=== PATIENT | female | born 1965 | race Two or more races ===

== ENCOUNTER 2018-12-24 18:04 | Emergency (ER) | payer OTHER ==
[~2018-12-24] VITALS: Ht 162.6 cm; Wt 77.3 kg
[2018-12-24 19:00] LABS: GLUCOSE,POINT OF CARE 290 MG/DL (70-110)
[2018-12-24] MEDS ORDERED: PRAZ5 PO (19:00)
[2018-12-24] MEDS ORDERED: PANT40TA25 PO (19:00)
[2018-12-24] MEDS ORDERED: INSNOV SQ (19:00)
[2018-12-24] MEDS ORDERED: METO-558 PO (19:00)
[2018-12-24] MEDS ORDERED: METF-960 PO (19:00)
[2018-12-24] MEDS ORDERED: EMPA25TA PO (19:00)
[2018-12-24] MEDS ORDERED: GABA-531 PO (19:00)
[2018-12-24] MEDS ORDERED: LISI-660 PO (19:00)
[2018-12-24] MEDS ORDERED: CETI10TA59 PO (19:00)
[2018-12-24] MEDS ORDERED: SIMV-260 PO (19:00)
[2018-12-24] MEDS ORDERED: BACL10TA PO (19:00)
[2018-12-24] MEDS ORDERED: INSU100V37 IM (19:00)
[2018-12-24] MEDS ORDERED: ASPI-1182 PO (19:00)
[2018-12-24] MEDS ORDERED: ACETAMINOPHEN 500 MG TABLET PO ONE (21:15)
[2018-12-24] MEDS ORDERED: SODIUM CHLORIDE 0.9% 1,000 ML IV ONE (21:15)
[2018-12-24 22:01] LABS: ANION GAP 8 mmol/L (8-16); CALCIUM, TOTAL 9.6 mg/dL (8.8-10.5); CARBON DIOXIDE 29 mmol/L (22-29); CHLORIDE 99 mmol/L (98-107); CREATININE 0.91 mg/dL (0.60-1.30); GLOMERULAR FILTR. RATE CALC > 60 mL/min (>60); GLUCOSE,RANDOM 324 mg/dL (70-110); POTASSIUM 4.5 mmol/L (3.5-5.1); SODIUM SERUM 136 mmol/L (136-145); UREA NITROGEN, BLOOD 18 mg/dL (7-18)
[2018-12-24 22:05] LABS: BASOPHILS % (AUTO) 0.3 % (0.0-2.0); EOSINOPHILS % (AUTO) 0.1 % (1.0-6.0); HEMATOCRIT 36.2 % (36-46); HEMOGLOBIN 11.7 g/dL (12.0-16.0); LYMPHOCYTES % (AUTO) 21.8 % (22.0-44.0); MEAN CORPUSCULAR HEMOGLOBIN 24.2 pg (26.0-34.0); MEAN CORPUSCULAR HGB CONC 32.3 G/dL (31.0-37.0); MEAN CORPUSCULAR VOLUME 75 fL (80-100); MONOCYTES # (AUTO) 0.5 K/uL (0.1-1.0); MONOCYTES % (AUTO) 9.6 % (2.0-9.0); NEUTROPHILS # (AUTO) 3.2 K/uL (1.8-7.7); NEUTROPHILS % (AUTO) 68.2 % (40.0-70.0); PLATELET COUNT (AUTO) 227 K/uL (150-450); RED BLOOD CELL COUNT(AUTO) 4.83 MIL/uL (4.00-5.20); RED CELL DISTRIBUTION WIDTH 15.9 % (11.5-14.5)
[2018-12-24] MEDS ORDERED: IOVERSOL 350 MG/ML 100 ML VIAL ONE (22:49)
[2018-12-24] MEDS ORDERED: SODIUM CHLORIDE 0.9% 100 ML ONE (22:49)
[2018-12-25 01:47] VITALS: BP 129/77
== END 2018-12-25 02:00 | disposition home or self-care (01) ==
LOC: EMS 18:06
DX: S93.401A Sprain of unspecified ligament of right ankle, initial encounter (principal); J18.9 Pneumonia, unspecified organism; R55 Syncope and collapse; I10 Essential (primary) hypertension; E11.9 Type 2 diabetes mellitus without complications; K21.9 Gastro-esophageal reflux disease without esophagitis; E78.00 Pure hypercholesterolemia, unspecified; Z79.82 Long term (current) use of aspirin; Z79.84 Long term (current) use of oral hypoglycemic drugs; Z79.899 Other long term (current) drug therapy; Z79.4 Long term (current) use of insulin; X58.XXXA Exposure to other specified factors, initial encounter; Y93.01 Activity, walking, marching and hiking; Y92.89 Other specified places as the place of occurrence of the external cause; Y99.8 Other external cause status
CPT/HCPCS: 36415; 70450; 71275; 73610; 73630; 80048; 82962; 85025; 85379; 93005; 96360; 99285; J7030; J7050; Q9967

== ENCOUNTER 2023-09-17 16:48 | Emergency (ER) | payer OTHER ==
[~2023-09-17] VITALS: Ht 152.4 cm; Wt 63.6 kg
[~2023-09-17 16:48] MED LIST: ASPI-1444 PO; BACL10TA PO; CETI-450 PO; EMPA25TA3 PO; GABA-1181 PO; INSNOV SQ; INSU100V37 IM; LISI-892 PO; METF-1211 PO; METO-558 PO; PANT-31 PO; PRAZ5 PO; SIMV-260 PO
[2023-09-17 17:31] LABS: BASOPHILS % (AUTO) 0.6 % (0.0-2.0); EOSINOPHILS % (AUTO) 0.6 % (1.0-6.0); HEMATOCRIT 39.9 % (36-46); HEMOGLOBIN 12.8 g/dL (12.0-16.0); LYMPHOCYTES # (AUTO) 1.2 K/uL (1.0-4.8); LYMPHOCYTES % (AUTO) 27.5 % (22.0-44.0); MEAN CORPUSCULAR HEMOGLOBIN 26.7 pg (26.0-34.0); MEAN CORPUSCULAR HGB CONC 32.1 G/dL (31.0-37.0); MEAN CORPUSCULAR VOLUME 83 fL (80-100); MONOCYTES # (AUTO) 0.2 K/uL (0.1-1.0); MONOCYTES % (AUTO) 5.1 % (2.0-9.0); NEUTROPHILS # (AUTO) 2.9 K/uL (1.8-7.7); NEUTROPHILS % (AUTO) 66.2 % (40.0-70.0); PLATELET COUNT (AUTO) 149 K/uL (150-450); RED CELL DISTRIBUTION WIDTH 13.9 % (11.5-14.5); WHITE BLOOD COUNT (AUTO) 4.3 K/uL (4.5-11.0)
[2023-09-17 17:54] LABS: ALBUMIN 4.3 g/dL (3.4-5.0); BILIRUBIN,TOTAL 0.5 mg/dL (0.1-1.0); CALCIUM, TOTAL 10.1 mg/dL (8.8-10.5); CREATININE 1.01 mg/dL (0.60-1.30); POTASSIUM 5.2 mmol/L (3.5-5.1)
[2023-09-17] MEDS ORDERED: INSULIN REGULAR, HUMAN 100 UNITS/ML IVP ONE (18:15)
[2023-09-17] MEDS ORDERED: SODIUM CHLORIDE 0.9% 1,000 ML IV ONE (18:15)
[2023-09-17] MEDS ORDERED: ACETAMINOPHEN 500 MG TABLET PO ONE (18:30)
[2023-09-17] MEDS ORDERED: FAMOTIDINE 20 MG/2 ML VIAL IVP ONE (18:30)
[2023-09-17] MEDS ORDERED: ONDANSETRON HCL 4 MG/2 ML VIAL IVP ONE (18:30)
[2023-09-17] MEDS ORDERED: MAG HYDROX/ALUMINUM HYD/SIMETH 30 ML SUSPENSION UDCUP PO ONE (18:30)
[2023-09-17 19:30] VITALS: TEMP 98.9
[2023-09-17 20:46] LABS: GLUCOMETER DEV NAME(LOC) ER.6; GLUCOSE,POINT OF CARE 376 MG/DL (70-110)
[2023-09-17] MEDS ORDERED: SODIUM CHLORIDE 0.9% 100 ML ONE (20:56)
[2023-09-17] MEDS ORDERED: IOHEXOL 350 MG/ML 100 ML VIAL ONE (20:56)
[2023-09-17 22:50] LABS: APPEARANCE,URINE CLEAR (CLEAR); BILIRUBIN,URINE NEGATIVE (NEGATIVE); COLOR,URINE LIGHT YELLOW (YELLOW); GLUCOSE, URINE (UA) >=1000 mg/dL (NEGATIVE); KETONES,URINE 40-60 mg/dL (NEGATIVE); LEUKOCYTE ESTERASE ,URINE NEGATIVE (NEGATIVE); NITRATE,URINE NEGATIVE (NEGATIVE); OCCULT BLOOD,URINE NEGATIVE (NEGATIVE); PH,URINE 5.5 (5.0-8.0); PROTEIN,URINE NEGATIVE (NEGATIVE); SPECIFIC GRAVITIY, URINE 1.038 (1.003-1.030); UROBILINOGEN,URINE <=1.0 mg/dL (<=1.0)
[2023-09-17 22:55] LABS: BACTERIA,URINE None Seen /HPF (None Seen); RBC,URINE None Seen /HPF (0-2); SQUAMOUS EPITHELIAL CELL,UR Few /LPF (None Seen); WBC,URINE 0-2 /HPF (0-5)
[2023-09-18 00:30] VITALS: BP 128/73; PULSE 84; RESP 18
[2023-09-18] MEDS ORDERED: OMEP20 PO (01:05)
[2023-09-18] MEDS ORDERED: ACET-66 PO (01:05)
[2023-09-18] MEDS ORDERED: POLY119P3 PO (01:05)
== END 2023-09-18 02:04 | disposition home or self-care (01) ==
LOC: EMS 16:57
DX: K27.9 Peptic ulcer, site unspecified, unspecified as acute or chronic, without hemorrhage or perforation (principal); K29.70 Gastritis, unspecified, without bleeding; B96.89 Other specified bacterial agents as the cause of diseases classified elsewhere; E11.65 Type 2 diabetes mellitus with hyperglycemia; E78.00 Pure hypercholesterolemia, unspecified; I10 Essential (primary) hypertension; Z98.890 Other specified postprocedural states
CPT/HCPCS: 99285; 74177; 96374; 76705; 96361; 96375; 80053; 81001; 82962; 83690; 85025; 36415; J3490; J2405; Q9967; J7030; J7050

== ENCOUNTER 2025-06-24 10:51 | Inpatient (IN) | payer OTHER ==
[~2025-06-24] VITALS: Ht 157.5 cm; Wt 66.4 kg
[~2025-06-24 10:51] MED LIST changes: +ACET-66 PO; -CETI-450 PO; +CETI10TA77 PO; +METO-325 PO; -METO-558 PO; +OMEP-148 PO; +POLY119P3 PO
[2025-06-24 11:30] LABS: GLUCOMETER DEV NAME(LOC) ERT.7; GLUCOSE,POINT OF CARE 281 MG/DL (70-110)
[2025-06-24] MEDS: VANCOMYCIN 1.25 GM/WATER(PEG) 250 ML IV ONE (12:04)
[2025-06-24] MEDS: CefTRIAXone 1 GM/DEXTROSE 50 ML IV ONE (12:04)
[2025-06-24] MEDS: SODIUM CHLORIDE 0.9% 1,000 ML IV ONE (12:05)
[2025-06-24 12:10] LABS: CALCIUM, TOTAL 8.3 mg/dL (8.8-10.5); CREATININE 0.81 mg/dL (0.60-1.30); GLOMERULAR FILTR. RATE CALC > 60 mL/min (>60); GLUCOSE,RANDOM 357 mg/dL (70-110); PLATELET COUNT (AUTO) 130 K/uL (150-450); RED BLOOD CELL COUNT(AUTO) 4.44 MIL/uL (4.00-5.20); RED CELL DISTRIBUTION WIDTH 14.0 % (11.5-14.5); SODIUM SERUM 136 mmol/L (136-145); UREA NITROGEN, BLOOD 12 mg/dL (7-18); WHITE BLOOD COUNT (AUTO) 2.8 K/uL (4.5-11.0)
[2025-06-24 12:19] LABS: LACTIC ACID 1.5 mmol/L (0.4-2.0)
[2025-06-24 15:54] VITALS: BP 121/77; PULSE 79; RESP 18; TEMP 98.1; O2SAT 100
[2025-06-24] MEDS ORDERED: MELA5TAB40 PO (16:46)
[2025-06-24] MEDS ORDERED: XALA2.5OS OU (16:46)
[2025-06-24] MEDS ORDERED: SEMA1PEN3 SQ (16:46)
[2025-06-24] MEDS ORDERED: HYDR50CA7 PO (16:46)
[2025-06-24] MEDS ORDERED: INSU100V SQ (16:46)
[2025-06-24] MEDS ORDERED: CHOL25TA4 PO (16:46)
[2025-06-24] MEDS ORDERED: QUET200T PO (16:46)
[2025-06-24] MEDS ORDERED: MIRT-149 PO (16:46)
[2025-06-24] MEDS ORDERED: VENL50TA44 PO (16:46)
[2025-06-24 17:11] LABS: GLUCOMETER DEV NAME(LOC) 4E.2; GLUCOSE,POINT OF CARE 219 MG/DL (70-110)
[2025-06-24] MEDS ORDERED: IPRATROPIUM BROMIDE 0.5 MG/2.5 ML NEB SOLUTION NEB PRN (19:00)
[2025-06-24] MEDS ORDERED: ALBUTEROL SULFATE 2.5 MG/0.5 ML NEB SOLUTION NEB PRN (19:00)
[2025-06-24] MEDS ORDERED: BISACODYL 10 MG RECTAL RECTAL SUPPOSITORY PR PRN (19:00)
[2025-06-24] MEDS ORDERED: MAGNESIUM HYDROXIDE SUSPENSION 30 ML UDCUP PO PRN (19:00)
[2025-06-24] MEDS ORDERED: ONDANSETRON HCL 4 MG/2 ML VIAL IVP PRN (19:00)
[2025-06-24] MEDS ORDERED: ZOLPIDEM TARTRATE 5 MG TABLET PO PRN (19:00)
[2025-06-24] MEDS ORDERED: HYDROCODONE/ACETAMINOPHEN 5-325 MG TABLET PO PRN (19:00)
[2025-06-24] MEDS ORDERED: ACETAMINOPHEN 325 MG TABLET PO PRN (19:00)
[2025-06-24 19:54] VITALS: BP 124/64; PULSE 83; RESP 18; TEMP 98.6; O2SAT 100
[2025-06-24] MEDS: VENLAFAXINE HCL 150 MG ER CAPSULE PO SCH (21:00)
[2025-06-24] MEDS: BACLOFEN 10 MG TABLET PO SCH (21:00)
[2025-06-24] MEDS: GABAPENTIN 300 MG CAPSULE PO SCH (21:00)
[2025-06-24] MEDS: PRAZOSIN HCL 5 MG CAPSULE PO SCH (21:00)
[2025-06-24] MEDS ORDERED: DEXTROSE 50%-WATER 25 GM/50 ML SYRINGE IVP PRN (22:00)
[2025-06-24] MEDS: INSULIN LISPRO 100 UNITS/ML SQ PRN (22:13)
[2025-06-24] MEDS: PANTOPRAZOLE SODIUM 40 MG DR TABLET PO SCH (22:16)
[2025-06-24] MEDS: MELATONIN 5 MG TABLET PO PRN (22:16)
[2025-06-24] MEDS: LATANOPROST 0.005% 2.5 ML OPHTHALMIC SOLUTION OU SCH (22:17)
[2025-06-25] MEDS: HEPARIN SODIUM,PORCINE 5,000 UNITS/ML VIAL SQ SCH
[2025-06-25 05:01] VITALS: BP 116/64; PULSE 88; RESP 18; TEMP 98.4; O2SAT 99
[2025-06-25 07:50] LABS: CALCIUM, TOTAL 8.3 mg/dL (8.8-10.5); CREATININE 0.63 mg/dL (0.60-1.30); GLOMERULAR FILTR. RATE CALC > 60 mL/min (>60); GLUCOSE,RANDOM 360 mg/dL (70-110); SODIUM SERUM 135 mmol/L (136-145); UREA NITROGEN, BLOOD 16 mg/dL (7-18)
[2025-06-25 07:56] LABS: GLUCOMETER DEV NAME(LOC) 4E.2; GLUCOSE,POINT OF CARE 394 MG/DL (70-110)
[2025-06-25 07:56] LABS: GLUCOMETER DEV NAME(LOC) 4E.2; GLUCOSE,POINT OF CARE 375 MG/DL (70-110)
[2025-06-25 08:00] VITALS: BP 124/67; PULSE 94; RESP 18; TEMP 98.6; O2SAT 100
[2025-06-25] MEDS ORDERED: VANCOMYCIN 750 MG/WATER(PEG) 150 ML IV SCH (08:00)
[2025-06-25] MEDS ORDERED: SODIUM CHLORIDE 0.9% 500 ML IV ONE (08:59)
[2025-06-25] MEDS ORDERED: PANTOPRAZOLE SODIUM 40 MG DR TABLET PO SCH ×2 (09:00)
[2025-06-25] MEDS: SIMVASTATIN 20 MG TABLET PO SCH (09:06)
[2025-06-25] MEDS: CHOLECALCIFEROL (VIT D3) 1,000 UNITS [25 MCG] TABLET PO SCH (09:07)
[2025-06-25] MEDS: ASPIRIN 81 MG DR TABLET PO SCH (09:08)
[2025-06-25] MEDS: METOPROLOL SUCCINATE 50 MG ER TABLET PO SCH (09:12)
[2025-06-25] MEDS: VANCOMYCIN 1GM/WATER(PEG/NADA) 200 ML IV SCH (09:35)
[2025-06-25 11:45] LABS: GLUCOMETER DEV NAME(LOC) 4E.2; GLUCOSE,POINT OF CARE 229 MG/DL (70-110)
[2025-06-25 15:45] VITALS: BP 92/63; PULSE 86; RESP 17; TEMP 98.1; O2SAT 100
[2025-06-25 18:00] LABS: GLUCOMETER DEV NAME(LOC) 4E.2; GLUCOSE,POINT OF CARE 319 MG/DL (70-110)
[2025-06-25 20:09] VITALS: BP 101/64; PULSE 86; RESP 18; TEMP 97.9; O2SAT 100
[2025-06-25 21:21] LABS: GLUCOMETER DEV NAME(LOC) 4E.2; GLUCOSE,POINT OF CARE 307 MG/DL (70-110)
[2025-06-26 04:15] VITALS: BP 91/55; PULSE 84; RESP 18; TEMP 97.7; O2SAT 97
[2025-06-26 06:05] LABS: GLUCOMETER DEV NAME(LOC) 4E.2; GLUCOSE,POINT OF CARE 65 MG/DL (70-110)
[2025-06-26 06:40] LABS: GLUCOMETER DEV NAME(LOC) 4E.2; GLUCOSE,POINT OF CARE 106 MG/DL (70-110)
[2025-06-26 08:14] LABS: CALCIUM, TOTAL 8.8 mg/dL (8.8-10.5); CREATININE 0.73 mg/dL (0.60-1.30); GLOMERULAR FILTR. RATE CALC > 60 mL/min (>60); GLUCOSE,RANDOM 91 mg/dL (70-110); SODIUM SERUM 141 mmol/L (136-145); UREA NITROGEN, BLOOD 24 mg/dL (7-18)
[2025-06-26 08:16] VITALS: BP 102/63; PULSE 85; RESP 18; TEMP 97.9; O2SAT 99
[2025-06-26 11:55] LABS: GLUCOMETER DEV NAME(LOC) 4E.2; GLUCOSE,POINT OF CARE 155 MG/DL (70-110)
[2025-06-26 15:47] VITALS: BP 122/71; PULSE 79; RESP 18; TEMP 97.7; O2SAT 100
[2025-06-26 17:10] LABS: GLUCOMETER DEV NAME(LOC) 4E.2; GLUCOSE,POINT OF CARE 256 MG/DL (70-110)
[2025-06-26 20:00] VITALS: BP 133/71; PULSE 86; RESP 18; TEMP 98.1; O2SAT 96
[2025-06-26 20:56] LABS: GLUCOMETER DEV NAME(LOC) 4E.2; GLUCOSE,POINT OF CARE 417 MG/DL (70-110)
[2025-06-26 21:09] LABS: PLATELET COUNT (AUTO) 150 K/uL (150-450); RED BLOOD CELL COUNT(AUTO) 4.29 MIL/uL (4.00-5.20); RED CELL DISTRIBUTION WIDTH 14.1 % (11.5-14.5); WHITE BLOOD COUNT (AUTO) 3.2 K/uL (4.5-11.0)
[2025-06-26] MEDS: SODIUM CHLORIDE 0.45% 1,000 ML IV SCH (23:28)
[2025-06-27 04:00] VITALS: BP 103/65; PULSE 85; RESP 18; TEMP 98.2; O2SAT 96
[2025-06-27 06:21] LABS: GLUCOMETER DEV NAME(LOC) 4E.2; GLUCOSE,POINT OF CARE 221 MG/DL (70-110)
[2025-06-27 06:41] LABS: CALCIUM, TOTAL 8.4 mg/dL (8.8-10.5); CREATININE 0.79 mg/dL (0.60-1.30); GLOMERULAR FILTR. RATE CALC > 60 mL/min (>60); GLUCOSE,RANDOM 271 mg/dL (70-110); SODIUM SERUM 139 mmol/L (136-145); UREA NITROGEN, BLOOD 31 mg/dL (7-18)
[2025-06-27 08:00] VITALS: BP 120/71; PULSE 89; RESP 20; TEMP 98.2; O2SAT 98
[2025-06-27] MEDS: VANCOMYCIN 750 MG/WATER(PEG) 150 ML IV SCH (08:30)
[2025-06-27 11:55] LABS: GLUCOMETER DEV NAME(LOC) 4S.2; GLUCOSE,POINT OF CARE 373 MG/DL (70-110)
[2025-06-27 16:00] VITALS: BP 142/73; PULSE 79; RESP 20; TEMP 98.2; O2SAT 98
[2025-06-27] MEDS: LIDOCAINE 2% 6 ML JELLY TP ONE (16:16)
[2025-06-27] MEDS: MORPHINE SULFATE 4 MG/ML SYRINGE IVP PRN (16:22)
[2025-06-27] MEDS: LIDOCAINE 1% 10 ML VIAL IM ONE (17:55)
[2025-06-27 18:05] LABS: GLUCOMETER DEV NAME(LOC) 4S.2; GLUCOSE,POINT OF CARE 265 MG/DL (70-110)
[2025-06-27 19:56] VITALS: BP 123/67; PULSE 84; RESP 20; TEMP 98.1; O2SAT 95
[2025-06-27] MEDS: MIRTAZAPINE 30 MG TABLET PO SCH (20:41)
[2025-06-27 23:36] LABS: GLUCOMETER DEV NAME(LOC) 4S.2; GLUCOSE,POINT OF CARE 391 MG/DL (70-110)
[2025-06-28] MEDS: PIPERACILLIN/TAZO 3.375 GM/D5W 50 ML IV SCH (02:26)
[2025-06-28 04:38] VITALS: BP 105/55; PULSE 88; RESP 18; TEMP 98.2; O2SAT 93
[2025-06-28 06:46] LABS: CALCIUM, TOTAL 8.3 mg/dL (8.8-10.5); CREATININE 0.72 mg/dL (0.60-1.30); GLOMERULAR FILTR. RATE CALC > 60 mL/min (>60); GLUCOSE,RANDOM 191 mg/dL (70-110); SODIUM SERUM 141 mmol/L (136-145); UREA NITROGEN, BLOOD 27 mg/dL (7-18)
[2025-06-28 07:05] LABS: GLUCOMETER DEV NAME(LOC) 4S.2; GLUCOSE,POINT OF CARE 181 MG/DL (70-110)
[2025-06-28 07:45] VITALS: BP 121/76; PULSE 83; RESP 18; TEMP 97.9; O2SAT 97
[2025-06-28] MEDS: INSULIN GLARGINE,HUM.REC.ANLOG 100 UNITS/ML SQ SCH (09:09)
[2025-06-28 15:25] VITALS: BP 118/72; PULSE 80; RESP 18; TEMP 98.1; O2SAT 98
[2025-06-28 19:22] VITALS: BP 106/85; PULSE 79; RESP 18; TEMP 97.7; O2SAT 99
[2025-06-28 20:30] LABS: GLUCOMETER DEV NAME(LOC) 4E.2; GLUCOSE,POINT OF CARE 242 MG/DL (70-110)
[2025-06-28 20:30] LABS: GLUCOMETER DEV NAME(LOC) 4E.2; GLUCOSE,POINT OF CARE 357 MG/DL (70-110)
[2025-06-28 21:06] LABS: GLUCOMETER DEV NAME(LOC) 4S.2; GLUCOSE,POINT OF CARE 381 MG/DL (70-110)
[2025-06-29 04:41] VITALS: BP 109/67; PULSE 86; RESP 18; TEMP 98; O2SAT 99
[2025-06-29 06:35] LABS: PLATELET COUNT (AUTO) 153 K/uL (150-450); RED BLOOD CELL COUNT(AUTO) 4.20 MIL/uL (4.00-5.20); RED CELL DISTRIBUTION WIDTH 13.9 % (11.5-14.5); WHITE BLOOD COUNT (AUTO) 4.6 K/uL (4.5-11.0)
[2025-06-29 06:44] LABS: CALCIUM, TOTAL 8.8 mg/dL (8.8-10.5); CREATININE 0.74 mg/dL (0.60-1.30); GLOMERULAR FILTR. RATE CALC > 60 mL/min (>60); GLUCOSE,RANDOM 192 mg/dL (70-110); SODIUM SERUM 141 mmol/L (136-145); UREA NITROGEN, BLOOD 28 mg/dL (7-18)
[2025-06-29 07:46] LABS: GLUCOMETER DEV NAME(LOC) 4E.2; GLUCOSE,POINT OF CARE 184 MG/DL (70-110)
[2025-06-29 08:00] VITALS: BP 123/76; PULSE 86; RESP 16; TEMP 97.9; O2SAT 98
[2025-06-29 12:26] LABS: GLUCOMETER DEV NAME(LOC) 4S.2; GLUCOSE,POINT OF CARE 247 MG/DL (70-110)
[2025-06-29 16:00] VITALS: BP 129/67; PULSE 80; RESP 17; TEMP 97.5; O2SAT 98
[2025-06-29 17:46] LABS: GLUCOMETER DEV NAME(LOC) 4S.2; GLUCOSE,POINT OF CARE 331 MG/DL (70-110)
[2025-06-29 20:00] VITALS: BP 135/78; PULSE 84; RESP 18; TEMP 98.4; O2SAT 99
[2025-06-30] MEDS ORDERED: SODIUM CHLORIDE 0.9% 1,000 ML ONE (03:47)
[2025-06-30 04:00] VITALS: BP 101/60; PULSE 83; RESP 18; TEMP 98.1; O2SAT 100
[2025-06-30 06:05] LABS: GLUCOMETER DEV NAME(LOC) 4S.2; GLUCOSE,POINT OF CARE 273 MG/DL (70-110)
[2025-06-30 07:36] LABS: CALCIUM, TOTAL 8.4 mg/dL (8.8-10.5); CREATININE 0.88 mg/dL (0.60-1.30); GLOMERULAR FILTR. RATE CALC > 60 mL/min (>60); GLUCOSE,RANDOM 272 mg/dL (70-110); SODIUM SERUM 141 mmol/L (136-145); UREA NITROGEN, BLOOD 27 mg/dL (7-18)
[2025-06-30 08:19] VITALS: BP 117/81; PULSE 81; RESP 17; TEMP 98; O2SAT 98
[2025-06-30 12:36] LABS: GLUCOMETER DEV NAME(LOC) 4S.2; GLUCOSE,POINT OF CARE 279 MG/DL (70-110)
[2025-06-30 16:03] VITALS: BP 140/73; PULSE 74; RESP 18; TEMP 97.8; O2SAT 99
[2025-06-30 18:06] LABS: GLUCOMETER DEV NAME(LOC) 4S.2; GLUCOSE,POINT OF CARE 324 MG/DL (70-110)
[2025-06-30 19:45] VITALS: BP 100/82; PULSE 81; RESP 18; TEMP 98.6; O2SAT 98
[2025-06-30] MEDS ORDERED: SODIUM CHLORIDE 0.9% 250 ML IV ONE (22:29)
[2025-07-01 01:55] LABS: GLUCOMETER DEV NAME(LOC) 4E.2; GLUCOSE,POINT OF CARE 466 MG/DL (70-110)
[2025-07-01 01:55] LABS: GLUCOMETER DEV NAME(LOC) 4E.2; GLUCOSE,POINT OF CARE 394 MG/DL (70-110)
[2025-07-01 04:55] VITALS: BP 105/65; PULSE 75; RESP 18; TEMP 97.7; O2SAT 98
[2025-07-01 06:35] LABS: GLUCOMETER DEV NAME(LOC) 4E.2; GLUCOSE,POINT OF CARE 131 MG/DL (70-110)
[2025-07-01 07:17] LABS: CALCIUM, TOTAL 8.7 mg/dL (8.8-10.5); CREATININE 0.70 mg/dL (0.60-1.30); GLOMERULAR FILTR. RATE CALC > 60 mL/min (>60); GLUCOSE,RANDOM 111 mg/dL (70-110); SODIUM SERUM 143 mmol/L (136-145); UREA NITROGEN, BLOOD 25 mg/dL (7-18)
[2025-07-01 07:36] VITALS: BP 118/57; PULSE 76; RESP 18; TEMP 97.7; O2SAT 100
[2025-07-01] MEDS ORDERED: SULF1TAB94 PO (10:14)
[2025-07-01 19:56] LABS: GLUCOMETER DEV NAME(LOC) 4E.2; GLUCOSE,POINT OF CARE 297 MG/DL (70-110)
== END 2025-07-01 13:40 | disposition home or self-care (01) | DRG 383 ==
LOC: EMS 10:51 → EDH 13:51 → 4E 15:23
PROVIDERS: ADMIT Hospitalist; ATTEND Hospitalist
PROC: 0JBN0ZZ Excision of Right Lower Leg Subcutaneous Tissue and Fascia, Open Approach (ICD-10-PCS; principal; 2025-06-27)
DX: L03.115 Cellulitis of right lower limb (principal); D69.6 Thrombocytopenia, unspecified; R78.81 Bacteremia; L97.819 Non-pressure chronic ulcer of other part of right lower leg with unspecified severity; L03.116 Cellulitis of left lower limb; I10 Essential (primary) hypertension; E11.65 Type 2 diabetes mellitus with hyperglycemia; G47.00 Insomnia, unspecified; H40.9 Unspecified glaucoma; F99 Mental disorder, not otherwise specified; E78.00 Pure hypercholesterolemia, unspecified; K21.9 Gastro-esophageal reflux disease without esophagitis; E11.622 Type 2 diabetes mellitus with other skin ulcer
CPT/HCPCS: 73718; 80048; 80202; 82962; 83605; 85025; 87040; 87205; 93926; 93971; 96365; 96366; 99285; G0378; J0696; J1644; J1815; J2270; J2543; J3490; J7030; J7040; J7050; 36415-L1; 36415-TC